=== PATIENT | female | born 1995 ===

== ENCOUNTER 2017-10-22 12:39 | Emergency (ER) | payer MEDICAID, OTHER ==
[2017-10-22 12:46] VITALS: RESP 16
[2017-10-22 14:02] LABS: BASO % 0.4 % (0.0-2.0); EOS # 0.2 K/uL (0.0-0.7); EOS % 2.1 % (0.0-4.0); HEMOGLOBIN 12.5 g/dL (12.0-16.0); LYMPH # 1.5 K/uL (1.0-4.3); LYMPH % 18.9 % (20.0-40.0); MEAN CELL VOLUME 84.7 fl (81.0-99.0); MEAN CORPUSCULAR HEMOGLOBIN 28.5 pg (27.0-31.0); MEAN CORPUSCULAR HGB CONC 33.7 g/dL (33.0-37.0); MEAN PLATELET VOLUME 9.8 fl (7.2-11.7); MONO # 0.5 K/uL (0.0-0.8); MONO % 6.1 % (0.0-10.0); NEUT # 5.8 K/uL (1.8-7.0); NEUT % 72.5 % (50.0-75.0); NRBC % 0.2 % (0.0-0.0); RBC 4.38 Mil/uL (3.80-5.20); RED CELL DISTRIBUTION WIDTH 12.4 % (11.5-14.5); WHITE BLOOD COUNT 8.1 K/uL (4.8-10.8)
[2017-10-22] MEDS ORDERED: Sodium Chloride 0.9% 1,000 ML IV STA (14:09)
[2017-10-22 14:11] LABS: BLOOD UREA NITROGEN 8 mg/dl (7-17); CALCIUM 9.4 mg/dL (8.4-10.2); GFR AFRICAN-AMERICAN > 60; GFR NON-AFRICAN AMERICAN > 60
--- NOTE | 2017-10-22 14:25 | ED PDOC ---
Syncope/Near Syncope/Dizziness Time Seen by Provider: 10/22/17 12:50 Chief Complaint (Nursing): Dizziness/Lightheaded Chief Complaint (Provider): Syncopal episode History Per: Patient History/Exam Limitations: no limitations Onset/Duration Of Symptoms: Hrs (today) Current Symptoms Are (Timing): Still Present Number Of Syncopal Episodes: 2 Associated Symptoms Preceding Syncopal Episode: Other (SOB) Seizure Or Post-ictal Symptoms: None Fall Associated With With Symptoms: No Additional Complaint(s): Cecy Arcos is a 22 year old female, with a past medical history of pulmonary stenosis, who presents to the emergency department for a syncopal episode today. Patient reports she was at work where she spends a lot of time sitting and standing up, she felt lightheaded throughout the day and states she has been feeling that way for a couple of days due to a nasal congestion and sore throat. Patient reports she felt shortness of breath prior to syncopal episode and passed out at some point lasting a couple of seconds, she tried to get up but passed out again. She also reports a mild cough and states she coughed tiny amount of blood once. She denies any chest pain, fever or chills. No further medical complaints. PMD: None provided. Past Medical History Reviewed: Historical Data, Nursing Documentation, Vital Signs Vital Signs: Last Vital Signs Temp 98.9 F 10/22/17 12:43 Pulse 67 10/22/17 12:43 Resp 16 10/22/17 12:43 BP 119/75 10/22/17 12:43 Pulse Ox 97 10/22/17 12:43 - Medical History Other PMH: pulmonary stenosis - Surgical History Surgical History: No Surg Hx - Family History Family History: States: Unknown Family Hx - Social History Current smoker - smoking cessation education provided: Yes (light smoker <10 cigarettes daily) Alcohol: None Drugs: Cannabis - Immunization History Hx Tetanus Toxoid Vaccination: No Hx Influenza Vaccination: No Hx Pneumococcal Vaccination: No - Home Medications Home Medications: Ambulatory Orders Medication Instructions Recorded DiphenhydrAMINE [Benadryl] 25 mg PO Q4 #20 cap 02/07/15 Diphenhydramine Hydrochlorid 25 mg PO Q4 #20 cap 02/07/15 [Benadryl] Prednisone 2 tab PO DAILY #8 tab 02/07/15 Butalbit/Acetamin/Caff/Codeine 1 cap PO Q8 #10 cap 08/28/15 [Fioricet with Codeine 300 mg-50 mg-40 mg-30 M] Metoclopramide HCl [Reglan] 10 mg PO Q8 #10 tablet 08/28/15 Metoclopramide [Reglan] 1 tab PO TID PRN #25 tab 01/07/16 Ondansetron ODT [Zofran ODT] 4 mg PO TID #21 odt 04/27/16 SUMAtriptan [Imitrex] 50 mg PO BID PRN #15 tab 04/27/16 - Allergies Allergies/Adverse Reactions: Allergies Allergy/AdvReac Type Severity Reaction Status Date / Time No Known Allergies Allergy Verified 10/22/17 12:43 Review of Systems ROS Statement: Except As Marked, All Systems Reviewed And Found Negative Constitutional: Negative for: Fever, Chills ENT: Positive for: Nose Congestion, Throat Pain Cardiovascular: Negative for: Chest Pain Respiratory: Positive for: Cough, Shortness of Breath Neurological: Positive for: Other (syncope) Physical Exam - Reviewed Nursing Documentation Reviewed: Yes Vital Signs Reviewed: Yes - Physical Exam Appears: Positive for: Non-toxic, No Acute Distress Head Exam: Positive for: ATRAUMATIC, NORMOCEPHALIC Skin: Positive for: Normal Color, Warm, Dry Eye Exam: Positive for: Normal appearance, EOMI, PERRL ENT: Positive for: Normal ENT Inspection Neck: Positive for: Painless ROM, Supple Cardiovascular/Chest: Positive for: Regular Rate, Rhythm. Negative for: Murmur Respiratory: Positive for: Normal Breath Sounds. Negative for: Respiratory Distress Gastrointestinal/Abdominal: Positive for: Normal Exam, Soft. Negative for: Tenderness Back: Positive for: Normal Inspection. Negative for: L CVA Tenderness, R CVA Tenderness, Vertebral Tenderness Extremity: Positive for: Normal ROM (upper and lower extremities). Negative for : Deformity, Swelling Neurologic/Psych: Positive for: Alert, Oriented (x3). Negative for: Motor/ Sensory Deficits - Laboratory Results Result Diagrams: 10/22/17 13:55 10/22/17 13:55 - ECG ECG: Positive for: Interpreted By Me, Viewed By Me ECG Rhythm: Positive for: Normal QRS, Normal ST Segment, Sinus Rhythm. Negative for: ST/T Changes Rate: 60 O2 Sat by Pulse Oximetry: 97 (RA) Pulse Ox Interpretation: Normal - Radiology X-Ray: Interpreted by Me, Viewed By Me X-Ray Interpretation: No Acute Disease - Progress Re-evaluation Time: 15:33 Condition: Re-examined, Improved Medical Decision Making Medical Decision Making: Initial Impression: syncope. Differential includes cardiac arrhythmia, PE, dehydration Initial Plan: --EKG --BMP --Troponin I -- test --CBC w/ differential --D Dimer --Accucheck --Reevaluation 15:43 CXR FINDINGS: LUNGS: No active pulmonary disease. Bilateral hyperaeration noted PLEURA: No significant pleural effusion identified, no pneumothorax apparent. CARDIOVASCULAR: Normal. OSSEOUS STRUCTURES: Dextroscoliosis VISUALIZED UPPER ABDOMEN: Normal. OTHER FINDINGS: None. IMPRESSION: Bilateral hyperaeration - clear lungs. No pneumothorax Dextroscoliosis ----- Scribe Attestation: Documented by Indra Mckeon, acting as a scribe for Keara Luke MD. Provider Scribe Attestation: All medical record entries made by the Scribe were at my direction and personally dictated by me. I have reviewed the chart and agree that the record accurately reflects my personal performance of the history, physical exam, medical decision making, and the department course for this patient. I have also personally directed, reviewed, and agree with the discharge instructions and disposition. Disposition - Clinical Impression Clinical Impression: Syncope - Patient ED Disposition Is Patient to be Admitted: No Doctor Will See Patient In The: Office Counseled Patient/Family Regarding: Studies Performed, Diagnosis, Need For Followup - Disposition Referrals: [facility] [Outside] Disposition: Routine/Home Disposition Time: 15:33 Condition: GOOD Additional Instructions: Follow up with your PCP in 2-3 days. Rest and drink plenty of fluids. Return for recurrent problems. Instructions: Syncope (Fainting)
--- NOTE | 2017-10-22 15:44 | RAD ---
HISTORY: dyspnea COMPARISON: No prior. FINDINGS: LUNGS: No active pulmonary disease. Bilateral hyperaeration noted PLEURA: No significant pleural effusion identified, no pneumothorax apparent. CARDIOVASCULAR: Normal. OSSEOUS STRUCTURES: Dextroscoliosis VISUALIZED UPPER ABDOMEN: Normal. OTHER FINDINGS: None. IMPRESSION: Bilateral hyperaeration - clear lungs. No pneumothorax Dextroscoliosis
[2017-10-22 16:39] VITALS: BP 122/79; PULSE 75; TEMP 97.9; O2SAT 100
--- NOTE | 2017-10-22 17:48 | CARD ---
APPROVED REPORT EKG Measurement Heart [id number] <Conclusion> Normal sinus rhythm with sinus arrhythmia Normal ECG
== END 2017-10-22 16:40 | disposition home or self-care (01) ==
LOC: H.ER 12:39
DX: R55 Syncope and collapse (principal)
CPT/HCPCS: 71045; 80048; 81025; 82948; 84484; 85025; 85378; 87070; 87430; 87804; 93005; 99285; J7040